=== PATIENT | female | born 1990 | race Caucasian/White ===

== ENCOUNTER 2017-02-04 14:15 | Outpatient (RCR) | payer MEDICAID ==
[~2017-02-04 14:15] MED LIST: ALBUTEROL0.09 MG/A1 IH; ALLEGRA ALLERG180 MG PO; ATARAX 25MG25 MG/TAB PO; AZITHROMYCIN; BACTRIM DS 8001 TAB PO; CLARITIN D TAB1 TAB PO; DESONATE TP; DOXYCYCLINE 10100 MG PO; EFFEXOR-XR150 MG PO; FLEXERIL 1010 MG/TAB PO; GREER S GOO TOP; GUAIFENESIN; IBU800 M1 PO; IMPLANON68 MG ID; INHALER; LEVAQUIN 5500 MG/TA1 PO; LOCOID0.1% TP; LORTAB 5/500 501 TAB PO; MEDROL 4MG DOSPA4 MG PO; MELATONIN5 M1 PO; NO HOME MEDICATIONS; NORCO 325 MG-51 TAB PO; PERCOCET 325 MG1 TA2 PO; PHENERGAN 25 TA25 MG PO; PREDNISONE10 MG PO; PREDNISONE20 MG PO; PRENATAL VITAMI1 TA5 PO; PRENATAL1 TA2 PO; PROAIR HFA0.09 MG/AC IH; TAMIFLU 75MG75 MG PO; ULTRAM 50MG TAB50 MG PO; UNISOM SLEEPGEL50 MG PO; ZITHROMAX 250M250 MG PO; pro air
== END 2017-02-04 16:28 | disposition home or self-care (01) ==
LOC: WSPT 14:15
DX: M54.42 Lumbago with sciatica, left side (principal)

== ENCOUNTER 2018-03-20 16:29 | Emergency (ER) | payer MEDICAID ==
[~2018-03-20] VITALS: Ht 154.9 cm; Wt 109.1 kg
[~2018-03-20 16:29] MED LIST changes: +EFFEXOR 75M75 MG/TAB PO
[2018-03-20 16:34] VITALS: TEMP 99.1
[2018-03-20] MEDS ORDERED: EFFEXOR XR75 MG/CAP PO (16:43)
[2018-03-20] MEDS ORDERED: ADIPEX-P37.5 MG PO (16:44)
[2018-03-20] MEDS ORDERED: PREDNISONE20 MG PO (16:54)
[2018-03-20 17:32] VITALS: BP 136/102; PULSE 99
== END 2018-03-20 17:33 | disposition home or self-care (01) ==
LOC: COL.ER 16:29
DX: L98.8 Other specified disorders of the skin and subcutaneous tissue (principal); T78.40XA Allergy, unspecified, initial encounter
CPT/HCPCS: J7512

== ENCOUNTER 2019-09-05 16:59 | Emergency (ER) | payer SELFPAY ==
[~2019-09-05] VITALS: Ht 152.4 cm; Wt 107.3 kg
[~2019-09-05 16:59] MED LIST changes: +ADIPEX-P37.5 MG PO; +EFFEXOR XR75 MG/CAP PO
[2019-09-05 17:05] VITALS: BP 138/99; TEMP 98.5
[2019-09-05] MEDS ORDERED: LEXAPRO20 MG PO (17:08)
[2019-09-05 17:30] LABS: BASO % 0.2 % (0.0-2.0); EOS % 0.1 % (0-4.0); GRAN # 7.6 (1.4-6.5); HEMATOCRIT 43.7 % (37.0-47.0); LYMPH # 0.9 (1.2-3.4); LYMPH % 9.9 % (20.0-51.0); MEAN CELL VOLUME 91 fl (80.0-100.0); MEAN CORPUSCULAR HEMOGLOBIN 31 pg (27.0-31.0); MEAN CORPUSCULAR HGB CONC 34 g/dl (33.0-37.0); MEAN PLATELET VOLUME 10.8 fl (7.4-10.4); MONO # 0.1 (0.1-0.6); PLATELET COUNT 237 K/mm3 (130-400); RED BLOOD COUNT 4.83 M/mm3 (4.10-5.30); REDCELL DISTRIBUTION WIDTH-CV 11.9 % (11.5-14.5)
[2019-09-05 17:41] LABS: ALBUMIN 4.7 gm/dL (3.5-5.0); BILIRUBIN,TOTAL 0.3 mg/dL (0.0-1.0); C-REACTIVE PROTEIN 0.8 mg/dL (0.0-0.9); CALCIUM 9.3 mg/dL (8.4-10.2); CREATININE, serum 0.53 (0.52-1.25); POTASSIUM 3.7 mmol/L (3.4-5.0); TOTAL PROTEIN 8.7 gm/dL (6.4-8.2)
[2019-09-05] MEDS ORDERED: SPRINTEC 35 MCG1 TAB PO (18:12)
[2019-09-05 18:24] VITALS: PULSE 102
== END 2019-09-05 18:20 | disposition home or self-care (01) ==
LOC: COL.ER 16:59
PROVIDERS: Family Medicine
DX: N93.8 Other specified abnormal uterine and vaginal bleeding (principal)
CPT/HCPCS: J7030

== ENCOUNTER 2019-10-20 15:10 | Emergency (ER) | payer SELFPAY ==
[~2019-10-20] VITALS: Ht 152.4 cm; Wt 109.1 kg
[~2019-10-20 15:10] MED LIST changes: +LEXAPRO20 MG PO; +SPRINTEC 35 MCG1 TAB PO
[2019-10-20 15:28] VITALS: BP 176/110; TEMP 97.9
[2019-10-20 17:18] LABS: BASO # 0.1 (0.0-0.2); BASO % 0.5 % (0.0-2.0); EOS # 0.7 (0.0-0.7); EOS % 7.2 % (0-4.0); GRAN # 5.9 (1.4-6.5); GRAN % 62.4 % (42.2-75.2); HEMATOCRIT 43.1 % (37.0-47.0); HEMOGLOBIN 14.7 g/dl (12.5-16.0); LYMPH # 2.1 (1.2-3.4); LYMPH % 22.2 % (20.0-51.0); MEAN CELL VOLUME 90 fl (80.0-100.0); MEAN CORPUSCULAR HEMOGLOBIN 31 pg (27.0-31.0); MEAN CORPUSCULAR HGB CONC 34 g/dl (33.0-37.0); MEAN PLATELET VOLUME 11.3 fl (7.4-10.4); MONO # 0.7 (0.1-0.6); MONO % 7.3 % (1.7-9.3); PLATELET COUNT 190 K/mm3 (130-400); RED BLOOD COUNT 4.79 M/mm3 (4.10-5.30); REDCELL DISTRIBUTION WIDTH-CV 12.3 % (11.5-14.5)
[2019-10-20 17:23] LABS: ALBUMIN 4.1 gm/dL (3.5-5.0); BILIRUBIN,TOTAL 0.2 mg/dL (0.0-1.0); CALCIUM 8.9 mg/dL (8.4-10.2); CREATININE, serum 0.52 (0.52-1.25); POTASSIUM 3.4 mmol/L (3.4-5.0); TOTAL PROTEIN 7.8 gm/dL (6.4-8.2)
[2019-10-20] MEDS ORDERED: PREDNISONE20 MG PO (17:51)
[2019-10-20] MEDS ORDERED: PROAIR HFA0.09 MG/AC IH (17:51)
[2019-10-20 18:17] VITALS: PULSE 103
== END 2019-10-20 18:17 | disposition home or self-care (01) ==
LOC: COL.ER 15:10
PROVIDERS: Family Medicine
DX: J45.901 Unspecified asthma with (acute) exacerbation (principal)
CPT/HCPCS: J1100

== ENCOUNTER 2020-07-30 20:57 | Emergency (ER) | payer SELFPAY ==
[~2020-07-30] VITALS: Ht 165.1 cm; Wt 113.6 kg
[2020-07-30 21:11] VITALS: TEMP 98.9
[2020-07-30] MEDS ORDERED: NORCO 325 MG-51 TAB PO (21:36)
[2020-07-30] MEDS ORDERED: ZOFRAN ODT4 MG PO (22:45)
[2020-07-30 22:55] VITALS: BP 118/77; PULSE 102
== END 2020-07-30 22:57 | disposition home or self-care (01) ==
LOC: COL.ER 20:57
DX: Z20.828 Contact with and (suspected) exposure to other viral communicable diseases (principal); J45.909 Unspecified asthma, uncomplicated; Z87.891 Personal history of nicotine dependence
CPT/HCPCS: J1885

== ENCOUNTER 2020-09-15 14:02 | Emergency (ER) | payer SELFPAY ==
[~2020-09-15] VITALS: Ht 152.4 cm; Wt 113.6 kg
[~2020-09-15 14:02] MED LIST changes: +ZOFRAN ODT4 MG PO
[2020-09-15 14:07] VITALS: TEMP 98.7
[2020-09-15 14:49] LABS: BASO % 0.4 % (0.0-2.0); EOS # 1.7 (0.0-0.7); GRAN # 4.8 (1.4-6.5); GRAN % 54.3 % (42.2-75.2); HEMATOCRIT 41.5 % (37.0-47.0); HEMOGLOBIN 13.7 g/dl (12.5-16.0); LYMPH # 1.8 (1.2-3.4); LYMPH % 19.7 % (20.0-51.0); MEAN CELL VOLUME 93 fl (80.0-100.0); MEAN CORPUSCULAR HEMOGLOBIN 31 pg (27.0-31.0); MEAN CORPUSCULAR HGB CONC 33 g/dl (33.0-37.0); MEAN PLATELET VOLUME 10.9 fl (7.4-10.4); MONO # 0.6 (0.1-0.6); MONO % 6.4 % (1.7-9.3); PLATELET COUNT 248 K/mm3 (130-400); RED BLOOD COUNT 4.45 M/mm3 (4.10-5.30); REDCELL DISTRIBUTION WIDTH-CV 12.9 % (11.5-14.5)
[2020-09-15 14:58] LABS: ALBUMIN 3.9 gm/dL (3.5-5.0); BILIRUBIN,TOTAL 0.6 mg/dL (0.0-1.0); C-REACTIVE PROTEIN 1.9 mg/dL (0.0-0.9); CALCIUM 8.7 mg/dL (8.4-10.2); CREATININE, serum 0.69 (0.52-1.25); POTASSIUM 3.8 mmol/L (3.4-5.0); TOTAL PROTEIN 7.3 gm/dL (6.4-8.2)
[2020-09-15 15:46] LABS: ERYTHROCYTE SEDIMENTATION RATE 5 mm/hr (0-20)
[2020-09-15] MEDS ORDERED: DOXYCYCLINE 10100 MG PO (16:28)
[2020-09-15] MEDS ORDERED: TRIAMC 0.025 454 TOP (16:28)
[2020-09-15 16:41] VITALS: BP 128/80; PULSE 88
== END 2020-09-15 16:44 | disposition home or self-care (01) ==
LOC: COL.ER 14:02
PROVIDERS: Nurse Practitioner
DX: R21 Rash and other nonspecific skin eruption (principal); F32.9 Major depressive disorder, single episode, unspecified; J45.909 Unspecified asthma, uncomplicated; Z32.02 Encounter for pregnancy test, result negative; Z90.89 Acquired absence of other organs; Z88.0 Allergy status to penicillin; Z88.1 Allergy status to other antibiotic agents
CPT/HCPCS: J1100; J1200; J7030

== ENCOUNTER 2021-01-27 12:08 | Emergency (ER) | payer SELFPAY ==
[~2021-01-27] VITALS: Ht 152.4 cm; Wt 113.6 kg
[~2021-01-27 12:08] MED LIST changes: +TRIAMC 0.025 454 TOP
[2021-01-27] MEDS ORDERED: PREDNISONE10 MG PO (13:54)
[2021-01-27] MEDS ORDERED: ALBUTEROL0.83 MG/ML IH (13:54)
[2021-01-27 14:00] VITALS: BP 165/109; PULSE 101; TEMP 97.8
== END 2021-01-27 14:00 | disposition home or self-care (01) ==
LOC: COL.ER 12:08
DX: J45.901 Unspecified asthma with (acute) exacerbation (principal); L30.9 Dermatitis, unspecified; E66.9 Obesity, unspecified; Z88.0 Allergy status to penicillin; Z88.1 Allergy status to other antibiotic agents; Z68.42 Body mass index [BMI] 45.0-49.9, adult
CPT/HCPCS: A4614; J7512

== ENCOUNTER 2021-02-21 17:51 | Emergency (ER) | payer SELFPAY ==
[~2021-02-21] VITALS: Ht 152.4 cm; Wt 113.6 kg
[~2021-02-21 17:51] MED LIST changes: +ALBUTEROL0.83 MG/ML IH
[2021-02-21] MEDS ORDERED: PREDNISONE20 MG PO (18:59)
[2021-02-21] MEDS ORDERED: DOXYCYCLINE 10100 MG PO (18:59)
[2021-02-21 19:15] VITALS: BP 170/98; PULSE 94; TEMP 98
== END 2021-02-21 19:15 | disposition home or self-care (01) ==
LOC: COL.ER 17:51
DX: J45.901 Unspecified asthma with (acute) exacerbation (principal); J20.9 Acute bronchitis, unspecified; J01.90 Acute sinusitis, unspecified; R51.9 Headache, unspecified; Z88.0 Allergy status to penicillin; Z88.1 Allergy status to other antibiotic agents; Z87.891 Personal history of nicotine dependence; Z79.52 Long term (current) use of systemic steroids; Z86.69 Personal history of other diseases of the nervous system and sense organs
CPT/HCPCS: J1885; J2405

== ENCOUNTER 2021-12-29 11:51 | Emergency (ER) | payer SELFPAY ==
[~2021-12-29] VITALS: Ht 152.4 cm; Wt 118.2 kg
[2021-12-29 12:00] VITALS: BP 149/85; PULSE 91; TEMP 98.5
[2021-12-29] MEDS ORDERED: PREDNISONE50 MG PO (12:21)
== END 2021-12-29 12:32 | disposition home or self-care (01) ==
LOC: COL.ER 11:51
DX: L30.9 Dermatitis, unspecified (principal); M35.00 Sjogren syndrome, unspecified; J45.909 Unspecified asthma, uncomplicated; Z79.899 Other long term (current) drug therapy; Z79.52 Long term (current) use of systemic steroids
CPT/HCPCS: J7512

== ENCOUNTER 2022-02-24 10:39 | Emergency (ER) | payer OTHER ==
[~2022-02-24] VITALS: Ht 152.4 cm; Wt 104.1 kg
[~2022-02-24 10:39] MED LIST changes: -LEXAPRO 10MG10 MG PO
[2022-02-24 10:54] VITALS: BP 119/79; TEMP 98.1
[2022-02-24 11:52] LABS: BASO % 0.6 % (0.0-2.0); EOS # 0.1 K/mm3 (0.0-0.7); EOS % 1.9 % (0.0-4.0); GRAN % 74.2 % (42.2-75.2); HEMOGLOBIN 13.6 g/dl (12.5-16.0); LYMPH % 14.2 % (20.0-51.0); MEAN CELL VOLUME 88 fl (80.0-100.0); MEAN CORPUSCULAR HEMOGLOBIN 30 pg (27-31); MEAN CORPUSCULAR HGB CONC 34 g/dl (33.0-37.0); MONO # 0.6 K/mm3 (0.1-0.6); MONO % 8.8 % (1.7-9.3); PLATELET COUNT 231 K/mm3 (130-400); RED BLOOD COUNT 4.53 M/mm3 (4.10-5.30); REDCELL DISTRIBUTION WIDTH-CV 11.9 % (11.5-14.5)
[2022-02-24 12:06] LABS: ALBUMIN 3.4 gm/dL (3.5-5.0); BILIRUBIN,TOTAL 0.6 mg/dL (0.2-1.2); CREATININE, serum 0.68 mg/dL (0.57-1.11); POTASSIUM 3.6 mmol/L (3.5-4.5)
[2022-02-24] MEDS ORDERED: PERCOCET 325 MG1 TA2 PO ×4 (12:17→12:53)
[2022-02-24] MEDS ORDERED: NORCO 325 MG-51 TAB PO (12:34)
[2022-02-24 13:03] VITALS: PULSE 81
== END 2022-02-24 13:03 | disposition home or self-care (01) ==
LOC: COL.ER 10:39
PROVIDERS: Physician Assistant
DX: K80.50 Calculus of bile duct without cholangitis or cholecystitis without obstruction (principal)
CPT/HCPCS: J1885; J2405; J7030

== ENCOUNTER → 2022-02-24 | Outpatient (CLI) | payer OTHER ==
[~2022-02-24] MED LIST changes: +LEXAPRO 10MG10 MG PO; +PREDNISONE50 MG PO
== END ==
LOC: COL.RAD 09:56
DX: R10.11 Right upper quadrant pain (principal); R11.0 Nausea

== ENCOUNTER → 2022-02-27 | Outpatient (CLI) | payer OTHER ==
[~2022-02-27] MED LIST changes: +LEXAPRO 10MG10 MG PO
== END ==
LOC: COL.RAD 09:31
DX: R10.11 Right upper quadrant pain (principal); R11.0 Nausea
CPT/HCPCS: A9537

== ENCOUNTER 2022-03-03 12:51 | Inpatient (IN) | payer OTHER ==
[~2022-03-03] VITALS: Ht 152.4 cm; Wt 102.9 kg
[~2022-03-03 12:51] MED LIST changes: -LEXAPRO 10MG10 MG PO
[2022-03-03 13:37] LABS: BASO % 0.3 % (0.0-2.0); EOS # 0.3 K/mm3 (0.0-0.7); EOS % 2.5 % (0.0-4.0); GRAN # 10.5 K/mm3 (1.4-6.5); GRAN % 83.2 % (42.2-75.2); HEMATOCRIT 38.8 % (37.0-47.0); HEMOGLOBIN 13.5 g/dl (12.5-16.0); LYMPH # 1.2 K/mm3 (1.2-3.4); LYMPH % 9.2 % (20.0-51.0); MEAN CELL VOLUME 85 fl (80.0-100.0); MEAN CORPUSCULAR HEMOGLOBIN 30 pg (27-31); MEAN CORPUSCULAR HGB CONC 35 g/dl (33.0-37.0); MEAN PLATELET VOLUME 10.5 fl (7.4-10.4); MONO # 0.5 K/mm3 (0.1-0.6); MONO % 4.2 % (1.7-9.3); PLATELET COUNT 339 K/mm3 (130-400); RED BLOOD COUNT 4.55 M/mm3 (4.10-5.30); REDCELL DISTRIBUTION WIDTH-CV 11.9 % (11.5-14.5)
[2022-03-03 14:00] LABS: ALANINE AMINOTRANSFERASE 24 U/L (0-55); ALBUMIN 3.6 gm/dL (3.5-5.0); ALKALINE PHOSPHATASE 83 U/L (40-150); ANION GAP 11 mmol/L (7-16); AST,SGOT 10 U/L (5-34); BILIRUBIN,TOTAL 0.4 mg/dL (0.2-1.2); BLOOD UREA NITROGEN 9 mg/dL (7-19); CALCIUM 9.8 mg/dL (8.4-10.2); CARBON DIOXIDE 24 mmol/L (22-29); CHLORIDE 102 mmol/L (98-107); CREATININE, serum 0.65 mg/dL (0.57-1.11); GLUCOSE 106 mg/dL (70-99); LIPASE 7 U/L (8-78); POTASSIUM 3.9 mmol/L (3.5-4.5); SODIUM 137 mmol/L (136-145); TOTAL PROTEIN 8.2 gm/dL (6.2-8.1)
[2022-03-03 14:06] LABS: TROPONIN-I < 0.010 ng/mL (0.00-0.033)
[2022-03-03 14:25] LABS: COLLECTION METHOD CLEAN CATCH
[2022-03-03 14:41] LABS: MUCOUS Present (NOT PRESENT); PH 9 (5-8); SQUAMOUS EPITHELIAL 0-2 /hpf (0-10); URINE APPEARANCE Clear (CLEAR/HAZY); URINE BACTERIA None Seen /hpf (NONE SEEN); URINE BILIRUBIN Negative (NEGATIVE); URINE BLOOD Negative (NEGATIVE); URINE COLOR Yellow (YELLOW); URINE GLUCOSE Negative (NEGATIVE); URINE KETONE Negative (NEGATIVE); URINE LEUKOCYTE ESTERASE Negative (NEGATIVE); URINE NITRATE Negative (NEGATIVE); URINE PROTEIN(semi-quant) Negative (NEGATIVE); URINE RBC 0-2 /hpf (0-2); URINE UROBILINOGEN Negative (NEGATIVE)
[2022-03-03] MEDS ORDERED: LEXAPRO 10MG10 MG PO ×2 (16:56→20:39)
--- NOTE | 2022-03-03 20:35 | NUR ---
Patiente arrived to the unit 2015, alert and oriented x 4, complains of pain in her back 07/01. She feels weak, lack of appetite. Mother at the bedside. Assessment intake done.
[2022-03-03 21:08] VITALS: BP 143/101; PULSE 96; TEMP 98.9
[2022-03-04 00:34] VITALS: BP 132/69; PULSE 94; TEMP 99
[2022-03-04 05:20] VITALS: BP 147/75; PULSE 80; TEMP 98
[2022-03-04 06:25] LABS: BASO % 0.2 % (0.0-2.0); GRAN # 10.5 K/mm3 (1.4-6.5); GRAN % 87.5 % (42.2-75.2); HEMOGLOBIN 12.5 g/dl (12.5-16.0); LYMPH # 0.9 K/mm3 (1.2-3.4); LYMPH % 7.6 % (20.0-51.0); MEAN CELL VOLUME 86 fl (80.0-100.0); MEAN CORPUSCULAR HEMOGLOBIN 30 pg (27-31); MEAN CORPUSCULAR HGB CONC 35 g/dl (33.0-37.0); MEAN PLATELET VOLUME 10.7 fl (7.4-10.4); MONO # 0.5 K/mm3 (0.1-0.6); MONO % 4.3 % (1.7-9.3); PLATELET COUNT 324 K/mm3 (130-400); RED BLOOD COUNT 4.22 M/mm3 (4.10-5.30); REDCELL DISTRIBUTION WIDTH-CV 11.9 % (11.5-14.5)
[2022-03-04 06:28] LABS: HEMATOCRIT 36.2 % (37.0-47.0)
[2022-03-04 06:46] LABS: CALCIUM 9.2 mg/dL (8.4-10.2); CREATININE, serum 0.6 mg/dL (0.57-1.11); POTASSIUM 4.1 mmol/L (3.5-4.5)
--- NOTE | 2022-03-04 07:00 | NUR ---
Patient received a dose of pain medication and did not ask for more. She had some difficulty to sleep after 4 am, but now sleeping. Report given to day RN.
[2022-03-04 07:19] VITALS: BP 129/76; PULSE 74; TEMP 98.5
[2022-03-04 11:21] VITALS: BP 142/81; PULSE 77; TEMP 98.1
--- NOTE | 2022-03-04 11:25 | NUR ---
First visit from the manager news. No needs right now.
--- NOTE | 2022-03-04 11:52 | NUR ---
Social Work student met with patient to discuss discharge planning. Patient lives in [place] with her three kids: Valarie, Kellenx, and Ankita(all under the age of 18). Patient's emergency contact listed is her mother, Julito(ph#[phone]). Patient sees Dr. Hancock for primary care, and she receives her medications from [facility] with no cost difficulties. Patient does not utilize any durable medical equiptment, and she is independent with her ADL's. Patient has not filled out a DPOA-HC prior to her hospital stay today, therefore, this SW found next of kin. Patient is legally . Patient has three kids under the age of 18. Patient's mom is Julito and her father is Bud. Patient's children are currently staying with her parents while patient is in the hospital. Patient expressed she feels comfortable discharging home when ready. *Discharge plan: Home*
[2022-03-04 16:03] VITALS: BP 157/72; PULSE 77; TEMP 97.9
--- NOTE | 2022-03-04 17:00 | NUR ---
REPORT CALLED TO [facility] FOR TRANSFER.
--- NOTE | 2022-03-04 17:22 | NUR ---
PATIENT LEFT WITH EMS IN STABLE CONDITION FOR TRANSFER TO [facility] INCLUD[facility] THE [facility]. ALL BELONGINGS WITH PATIENT AND FAMILY.
--- NOTE | 2022-03-05 08:51 | NUR ---
Call recieved from lab that patient had (+) Blood Cultures x 2 - Growing Staph Aures. Call placed to [facility] to the spine unit. Patient's results given to JUAN Aquino. Stated she would give them to patients nurse. Fax # of [phone] given to Cesilia in the Lab and she will fax the results to the facility.
[2022-03-17] MEDS ORDERED: NEXPLANON68 MG ID (10:08)
[2022-03-17] MEDS ORDERED: FLONASEALLERGY NS (10:09)
[2022-03-17] MEDS ORDERED: TYLENOL 325MG325 MG PO (10:09)
[2022-03-17] MEDS ORDERED: CEFAZOLIN SODI100 ML IV (10:10)
[2022-03-17] MEDS ORDERED: MOTRIN 200200 MG/TAB PO (10:11)
[2022-03-17] MEDS ORDERED: ROXICODONE 55 MG/TAB PO (10:11)
[2022-03-17] MEDS ORDERED: HYDROCORTISONE30 G3 TP (10:11)
== END 2022-03-04 17:24 | disposition short-term general hospital (02) | DRG 552 ==
LOC: COL.ER 12:51 → MEDICAL 16:27
PROVIDERS: Family Medicine; Student in an Organized Health Care Education/Training Program; ADMIT Internal Medicine
PROC: 02HV33Z Insertion of Infusion Device into Superior Vena Cava, Percutaneous Approach (ICD-10-PCS; principal; 2022-03-04)
DX: M46.44 Discitis, unspecified, thoracic region (principal); J45.901 Unspecified asthma with (acute) exacerbation; L30.9 Dermatitis, unspecified; I10 Essential (primary) hypertension; K59.00 Constipation, unspecified; Z88.0 Allergy status to penicillin
CPT/HCPCS: OP; 99239; A9575; C1751; G0378; J1790; J1956; J2270; J2405; J3370; J7040; J7120; J7512; Q9967

== ENCOUNTER 2022-03-29 11:03 | Emergency (ER) | payer OTHER ==
[~2022-03-29] VITALS: Ht 152.4 cm; Wt 101.4 kg
[~2022-03-29 11:03] MED LIST changes: +CEFAZOLIN SODI100 ML IV; +FLONASEALLERGY NS; +HYDROCORTISONE30 G3 TP; +LEXAPRO 10MG10 MG PO; +MOTRIN 200200 MG/TAB PO; +NEXPLANON68 MG ID; +ROXICODONE 55 MG/TAB PO; +TYLENOL 325MG325 MG PO
[2022-03-29 11:14] VITALS: BP 111/71; PULSE 100; TEMP 98.3
[2022-04-10] MEDS ORDERED: PREDNISONE10 MG PO (09:08)
== END 2022-03-29 13:17 | disposition home or self-care (01) ==
LOC: COL.ER 11:03
DX: M46.26 Osteomyelitis of vertebra, lumbar region (principal); Z95.828 Presence of other vascular implants and grafts

== ENCOUNTER 2022-04-18 09:00 | Outpatient (RCR) | payer OTHER ==
[2022-03-24 09:40] VITALS: BP 130/89; PULSE 84; TEMP 98.2
[2022-03-24 09:48] LABS: BASO % 0.5 % (0.0-2.0); EOS # 0.8 K/mm3 (0.0-0.7); EOS % 14.6 % (0.0-4.0); GRAN # 3.4 K/mm3 (1.4-6.5); GRAN % 58.5 % (42.2-75.2); HEMOGLOBIN 12.5 g/dl (12.5-16.0); LYMPH # 1.2 K/mm3 (1.2-3.4); MEAN CELL VOLUME 88 fl (80.0-100.0); MEAN CORPUSCULAR HEMOGLOBIN 30 pg (27-31); MEAN CORPUSCULAR HGB CONC 34 g/dl (33.0-37.0); MONO # 0.4 K/mm3 (0.1-0.6); MONO % 6.1 % (1.7-9.3); PLATELET COUNT 198 K/mm3 (130-400); RED BLOOD COUNT 4.14 M/mm3 (4.10-5.30); REDCELL DISTRIBUTION WIDTH-CV 13.2 % (11.5-14.5)
[2022-03-24 09:57] LABS: HEMATOCRIT 36.3 % (37.0-47.0)
[2022-03-24 10:04] LABS: ALBUMIN 3.7 gm/dL (3.5-5.0); ALKALINE PHOSPHATASE 81 U/L (40-150); ANION GAP 8 mmol/L (7-16); AST,SGOT 11 U/L (5-34); BILIRUBIN,TOTAL 0.5 mg/dL (0.2-1.2); BLOOD UREA NITROGEN 17 mg/dL (7-19); C-REACTIVE PROTEIN 0.35 mg/dL (0.00-0.50); CALCIUM 8.6 mg/dL (8.4-10.2); CARBON DIOXIDE 23 mmol/L (22-29); CHLORIDE 106 mmol/L (98-107); CREATININE, serum 0.63 mg/dL (0.57-1.11); GLUCOSE 91 mg/dL (70-99); POTASSIUM 3.8 mmol/L (3.5-4.5); SODIUM 137 mmol/L (136-145); TOTAL PROTEIN 7.1 gm/dL (6.2-8.1)
[2022-03-24 10:05] LABS: ALANINE AMINOTRANSFERASE < 6 U/L (0-55)
[2022-03-24 10:26] LABS: ERYTHROCYTE SEDIMENTATION RATE 14 mm/hr (0-20)
[2022-03-31 09:20] VITALS: BP 144/85; PULSE 87; TEMP 98.4
[2022-03-31 09:51] LABS: BASO % 0.5 % (0.0-2.0); EOS # 0.5 K/mm3 (0.0-0.7); EOS % 9.3 % (0.0-4.0); GRAN # 3.9 K/mm3 (1.4-6.5); GRAN % 67.1 % (42.2-75.2); HEMOGLOBIN 12.6 g/dl (12.5-16.0); LYMPH % 17.3 % (20.0-51.0); MEAN CELL VOLUME 89 fl (80.0-100.0); MEAN CORPUSCULAR HEMOGLOBIN 30 pg (27-31); MEAN CORPUSCULAR HGB CONC 34 g/dl (33.0-37.0); MEAN PLATELET VOLUME 11.1 fl (7.4-10.4); MONO # 0.3 K/mm3 (0.1-0.6); MONO % 5.5 % (1.7-9.3); PLATELET COUNT 194 K/mm3 (130-400); RED BLOOD COUNT 4.15 M/mm3 (4.10-5.30); REDCELL DISTRIBUTION WIDTH-CV 13.2 % (11.5-14.5)
[2022-03-31 10:04] LABS: ALANINE AMINOTRANSFERASE < 6 U/L (0-55); ALBUMIN 3.8 gm/dL (3.5-5.0); ALKALINE PHOSPHATASE 85 U/L (40-150); ANION GAP 8 mmol/L (7-16); AST,SGOT 11 U/L (5-34); BILIRUBIN,TOTAL 0.4 mg/dL (0.2-1.2); BLOOD UREA NITROGEN 15 mg/dL (7-19); C-REACTIVE PROTEIN 0.22 mg/dL (0.00-0.50); CALCIUM 8.7 mg/dL (8.4-10.2); CARBON DIOXIDE 23 mmol/L (22-29); CHLORIDE 109 mmol/L (98-107); CREATININE, serum 0.63 mg/dL (0.57-1.11); GLUCOSE 95 mg/dL (70-99); HEMATOCRIT 36.9 % (37.0-47.0); POTASSIUM 3.6 mmol/L (3.5-4.5); SODIUM 140 mmol/L (136-145)
[2022-03-31 10:43] LABS: ERYTHROCYTE SEDIMENTATION RATE 19 mm/hr (0-20)
[2022-04-03 16:06] VITALS: BP 105/66; PULSE 89; TEMP 97.9
[2022-04-07 09:34] LABS: HEMATOCRIT 37.7 % (37.0-47.0); HEMOGLOBIN 12.8 g/dl (12.5-16.0); MEAN CELL VOLUME 89 fl (80.0-100.0); MEAN CORPUSCULAR HEMOGLOBIN 30 pg (27-31); MEAN CORPUSCULAR HGB CONC 34 g/dl (33.0-37.0); MEAN PLATELET VOLUME 11.3 fl (7.4-10.4); PLATELET COUNT 187 K/mm3 (130-400); RED BLOOD COUNT 4.25 M/mm3 (4.10-5.30)
[2022-04-07 09:35] VITALS: BP 127/70; PULSE 70; TEMP 98
[2022-04-07 09:51] LABS: ALBUMIN 3.7 gm/dL (3.5-5.0); ALKALINE PHOSPHATASE 85 U/L (40-150); ANION GAP 9 mmol/L (7-16); AST,SGOT 15 U/L (5-34); BILIRUBIN,TOTAL 0.5 mg/dL (0.2-1.2); BLOOD UREA NITROGEN 12 mg/dL (7-19); CALCIUM 8.4 mg/dL (8.4-10.2); CARBON DIOXIDE 24 mmol/L (22-29); CHLORIDE 107 mmol/L (98-107); CREATININE, serum 0.62 mg/dL (0.57-1.11); GLUCOSE 90 mg/dL (70-99); POTASSIUM 3.8 mmol/L (3.5-4.5); SODIUM 140 mmol/L (136-145)
[2022-04-07 09:52] LABS: ALANINE AMINOTRANSFERASE < 6 U/L (0-55)
[2022-04-07 10:00] LABS: ERYTHROCYTE SEDIMENTATION RATE 14 mm/hr (0-20)
[2022-04-10 09:23] VITALS: BP 128/88; PULSE 74; TEMP 98
[2022-04-10 09:30] LABS: HEMATOCRIT 37.6 % (37.0-47.0); HEMOGLOBIN 12.8 g/dl (12.5-16.0); MEAN CELL VOLUME 89 fl (80.0-100.0); MEAN CORPUSCULAR HEMOGLOBIN 30 pg (27-31); MEAN CORPUSCULAR HGB CONC 34 g/dl (33.0-37.0); MEAN PLATELET VOLUME 11.1 fl (7.4-10.4); PLATELET COUNT 191 K/mm3 (130-400); RED BLOOD COUNT 4.24 M/mm3 (4.10-5.30)
[2022-04-10 09:51] LABS: ALBUMIN 3.7 gm/dL (3.5-5.0); ALKALINE PHOSPHATASE 75 U/L (40-150); ANION GAP 10 mmol/L (7-16); AST,SGOT 11 U/L (5-34); BILIRUBIN,TOTAL 0.3 mg/dL (0.2-1.2); BLOOD UREA NITROGEN 15 mg/dL (7-19); C-REACTIVE PROTEIN 0.13 mg/dL (0.00-0.50); CALCIUM 8.2 mg/dL (8.4-10.2); CARBON DIOXIDE 24 mmol/L (22-29); CHLORIDE 106 mmol/L (98-107); CREATININE, serum 0.67 mg/dL (0.57-1.11); GLUCOSE 84 mg/dL (70-99); POTASSIUM 3.6 mmol/L (3.5-4.5); SODIUM 140 mmol/L (136-145); TOTAL PROTEIN 6.9 gm/dL (6.2-8.1)
[2022-04-10 09:53] LABS: ALANINE AMINOTRANSFERASE < 6 U/L (0-55)
[2022-04-10 09:57] LABS: ERYTHROCYTE SEDIMENTATION RATE 10 mm/hr (0-20)
[2022-04-14 10:00] VITALS: BP 114/80; PULSE 74; TEMP 98.3
[2022-04-14 10:04] LABS: BASO % 0.5 % (0.0-2.0); EOS # 0.8 K/mm3 (0.0-0.7); GRAN # 3.5 K/mm3 (1.4-6.5); GRAN % 58.8 % (42.2-75.2); HEMATOCRIT 41.7 % (37.0-47.0); HEMOGLOBIN 13.9 g/dl (12.5-16.0); LYMPH # 1.3 K/mm3 (1.2-3.4); LYMPH % 21.4 % (20.0-51.0); MEAN CELL VOLUME 91 fl (80.0-100.0); MEAN CORPUSCULAR HEMOGLOBIN 30 pg (27-31); MEAN CORPUSCULAR HGB CONC 33 g/dl (33.0-37.0); MEAN PLATELET VOLUME 10.7 fl (7.4-10.4); MONO # 0.4 K/mm3 (0.1-0.6); MONO % 6.1 % (1.7-9.3); PLATELET COUNT 206 K/mm3 (130-400)
[2022-04-14 10:23] LABS: ALBUMIN 3.8 gm/dL (3.5-5.0); ALKALINE PHOSPHATASE 84 U/L (40-150); ANION GAP 9 mmol/L (7-16); AST,SGOT 12 U/L (5-34); BILIRUBIN,TOTAL 0.9 mg/dL (0.2-1.2); BLOOD UREA NITROGEN 17 mg/dL (7-19); C-REACTIVE PROTEIN 0.45 mg/dL (0.00-0.50); CALCIUM 8.5 mg/dL (8.4-10.2); CARBON DIOXIDE 25 mmol/L (22-29); CHLORIDE 106 mmol/L (98-107); CREATININE, serum 0.63 mg/dL (0.57-1.11); GLUCOSE 78 mg/dL (70-99); POTASSIUM 3.6 mmol/L (3.5-4.5); SODIUM 140 mmol/L (136-145)
[2022-04-14 10:25] LABS: ALANINE AMINOTRANSFERASE < 6 U/L (0-55)
[2022-04-14 10:30] LABS: ERYTHROCYTE SEDIMENTATION RATE 4 mm/hr (0-20)
[~2022-04-18] VITALS: Ht 152.4 cm; Wt 101.9 kg
[2022-04-18 10:30] VITALS: BP 124/86; PULSE 69; TEMP 98.3
== END 2022-04-18 12:14 | disposition home or self-care (01) ==
LOC: EUO 09:00
PROVIDERS: Family Medicine
DX: Z48.00 Encounter for change or removal of nonsurgical wound dressing (principal); M46.24 Osteomyelitis of vertebra, thoracic region; B95.61 Methicillin susceptible Staphylococcus aureus infection as the cause of diseases classified elsewhere

== ENCOUNTER → 2022-06-05 | Outpatient (CLI) | payer OTHER | LOC: COL.RAD 07:51 | DX: M51.34 Other intervertebral disc degeneration, thoracic region (principal); Z87.39 Personal history of other diseases of the musculoskeletal system and connective tissue | CPT/HCPCS: A9575 ==

== ENCOUNTER 2024-07-12 03:19 | Emergency (ER) | payer SELFPAY ==
[~2024-07-12] VITALS: Ht 152.4 cm; Wt 95.5 kg
[2024-07-12 03:23] VITALS: TEMP 97.4
[2024-07-12] MEDS ORDERED: CIPRODEX OT (03:57)
[2024-07-12 04:12] VITALS: BP 154/108; PULSE 76
== END 2024-07-12 04:12 | disposition home or self-care (01) ==
LOC: COL.ER 03:19
DX: T16.2XXA Foreign body in left ear, initial encounter (principal); Z88.0 Allergy status to penicillin; Z88.1 Allergy status to other antibiotic agents; W44.8XXA Other foreign body entering into or through a natural orifice, initial encounter